=== PATIENT | female | born 1965 | race Caucasian/White ===

== ENCOUNTER 2018-04-18 13:28 | Inpatient (IN) | payer MEDICAID ==
[~2018-04-18] VITALS: Ht 172.7 cm; Wt 67.4 kg
[2018-04-18 15:35] LABS: BASOPHILS # (AUTO) 0.03 x10^3/uL (0-0.1); BASOPHILS % (AUTO) 0 % (0-1); EOSINOPHILS # (AUTO) 0.08 x10^3/uL (0-0.4); EOSINOPHILS % (AUTO) 1 % (1-7); LYMPHOCYTES # (AUTO) 3.25 x10^3/uL (1-3.4); LYMPHOCYTES % (AUTO) 25 % (22-44); MD NO; MEAN CORPUSCULAR HEMOGLOBIN 30.7 pg (27.0-34.8); MEAN CORPUSCULAR HGB CONC 33.4 g/dL (32.4-35.8); MEAN CORPUSCULAR VOLUME 91.7 fL (80-100); MEAN PLATELET VOLUME 7.6 fL (7.4-10.4); MONOCYTES # (AUTO) 0.72 x10^3/uL (0.2-0.8); MONOCYTES % (AUTO) 6 % (2-9); NEUTROPHILS # (AUTO) 8.86 x10^3/uL (1.8-6.8); NEUTROPHILS % (AUTO) 68 % (42-75); PLATELET COUNT 297 x10^3/uL (130-400); RED BLOOD COUNT 5.07 x10^6/uL (3.82-5.3); RED CELL DISTRIBUTION WIDTH 13.9 % (9.6-15.2)
[2018-04-18 15:41] LABS: ALBUMIN 3.9 g/dL (3.4-5.0); ANION GAP 10 mmol/L (5-15); CALCIUM 9.4 mg/dL (8.5-10.1); CHLORIDE 111 mmol/L (98-107)
[2018-04-18 15:44] LABS: ALANINE AMINOTRANSFERASE 18 U/L (12-78); ALKALINE PHOSPHATASE 64 U/L (45-117); BILIRUBIN,TOTAL 0.6 mg/dL (0.2-1.0); TOTAL PROTEIN 7.2 g/dL (6.4-8.2)
[2018-04-18] MEDS ORDERED: SODIUM CHLORIDE 0.9% 1,000 ML IV ONE (15:50)
[2018-04-18] MEDS ORDERED: SODIUM CHLORIDE FLUSH 10ML SYR IVF ONE (16:00)
[2018-04-18] MEDS ORDERED: SODIUM CHLORIDE 0.9% 1,000ML IVBOLUS ONE (16:00)
[2018-04-18] MEDS ORDERED: MORPHINE SULFATE 4 MG/ML, 1ML ONE ×2 (16:02→17:12)
[2018-04-18] MEDS ORDERED: ONDANSETRON 2MG/ML, 2ML ONE (16:02)
[2018-04-18] MEDS: MORPHINE SULFATE 4 MG/ML, 1ML IVPush PRN ×2 (16:30→19:42)
[2018-04-18] MEDS ORDERED: ONDANSETRON ODT 4 MG PO ONE (16:30)
[2018-04-18 16:39] LABS: MICROSCOPIC AUTO
[2018-04-18 16:41] LABS: INTERNATIONAL NORMALIZED RATIO 0.99 (0.93-1.1); PROTHROMBIN TIME 10.2 Seconds (9.6-11.5)
[2018-04-18 16:50] LABS: CULTURE INDICATED? NO
[2018-04-18] MEDS ORDERED: OMNIPAQUE 350 MG/ML, 100ML BOTTLE ONE (17:35)
[2018-04-18] MEDS ORDERED: CIPROFLOXACIN/PMX 400MG/200ML 200 ML ONE (18:15)
[2018-04-18] MEDS ORDERED: METRONIDAZOLE PMX 500MG/100ML 100 ML ONE (18:15)
[2018-04-18] MEDS ORDERED: TRAZ-137 PO (18:27)
[2018-04-18] MEDS ORDERED: BUSP15TA PO (18:27)
[2018-04-18] MEDS ORDERED: GABA300C10 PO (18:27)
[2018-04-18] MEDS ORDERED: PROP40TA PO (18:27)
[2018-04-18] MEDS ORDERED: METRONIDAZOLE PMX 500MG/100ML 100 ML IVPB ONE (18:30)
[2018-04-18] MEDS ORDERED: CIPROFLOXACIN/PMX 400MG/200ML 100 ML IVPB ONE (18:30)
[2018-04-18] MEDS ORDERED: ONDANSETRON ODT 4 MG PO PRN (19:30)
[2018-04-18] MEDS: morphine SULFATE 10 MG/ML, 1ML IVPush PRN ×2 (20:00→23:59)
[2018-04-18] MEDS: SODIUM CHLORIDE 0.9% 1,000 ML IV SCH (21:12)
[2018-04-18] MEDS: PROPRANOLOL 40 MG TABLET PO SCH (22:00)
[2018-04-18] MEDS ORDERED: TRAZODONE 100MG TABLET PO SCH (22:00)
[2018-04-18 22:31] VITALS: BP 93/58
[2018-04-18] MEDS: BUSPIRONE 10 MG TABLET PO SCH (22:32)
[2018-04-18] MEDS: GABAPENTIN 400 MG CAPSULE PO SCH (22:33)
[2018-04-19] MEDS: METRONIDAZOLE PMX 500MG/100ML 100 ML IV SCH ×4 (00:56→18:19)
[2018-04-19 02:39] VITALS: BP 93/50
[2018-04-19] MEDS: SODIUM CHLORIDE 0.9% 1,000 ML IV SCH ×3 (04:31→20:27)
[2018-04-19 05:55] LABS: BASOPHILS # (AUTO) 0.04 x10^3/uL (0-0.1); BASOPHILS % (AUTO) 1 % (0-1); EOSINOPHILS # (AUTO) 0.13 x10^3/uL (0-0.4); EOSINOPHILS % (AUTO) 2 % (1-7); LYMPHOCYTES # (AUTO) 2.52 x10^3/uL (1-3.4); LYMPHOCYTES % (AUTO) 30 % (22-44); MD NO; MEAN CORPUSCULAR HEMOGLOBIN 31.3 pg (27.0-34.8); MEAN CORPUSCULAR HGB CONC 33.8 g/dL (32.4-35.8); MEAN CORPUSCULAR VOLUME 92.7 fL (80-100); MEAN PLATELET VOLUME 7.6 fL (7.4-10.4); MONOCYTES # (AUTO) 0.66 x10^3/uL (0.2-0.8); MONOCYTES % (AUTO) 8 % (2-9); NEUTROPHILS # (AUTO) 4.97 x10^3/uL (1.8-6.8); NEUTROPHILS % (AUTO) 60 % (42-75); PLATELET COUNT 236 x10^3/uL (130-400); RED BLOOD COUNT 4.34 x10^6/uL (3.82-5.3); RED CELL DISTRIBUTION WIDTH 14.1 % (9.6-15.2)
[2018-04-19] MEDS: BUSPIRONE 10 MG TABLET PO SCH ×2 (06:32→11:15)
[2018-04-19 07:42] VITALS: BP 118/66
[2018-04-19] MEDS: PROPRANOLOL 40 MG TABLET PO SCH (08:02)
[2018-04-19] MEDS: GABAPENTIN 400 MG CAPSULE PO SCH (08:02)
[2018-04-19] MEDS: CIPROFLOXACIN/PMX 400MG/200ML 200 ML IV SCH ×2 (08:14→20:27)
[2018-04-19] MEDS ORDERED: ACETAMINOPHEN 325 MG TABLET PO PRN (09:30)
[2018-04-19] MEDS: HYDROcodone/APAP 5/325 TABLET PO PRN ×4 (10:00→22:21)
[2018-04-19 14:00] VITALS: BP 101/58
[2018-04-19] MEDS: BUSPIRONE 10 MG TABLET HOMEMEDPO SCH (14:57)
[2018-04-19 19:13] VITALS: BP 106/62
[2018-04-19] MEDS ORDERED: GABAPENTIN 300 MG CAPSULE PO SCH (21:00)
[2018-04-19] MEDS ORDERED: TRAZODONE 100MG TABLET HOMEMEDPO SCH (21:00)
[2018-04-19] MEDS ORDERED: TRAZODONE 100 MG PO SCH (21:00)
[2018-04-19] MEDS ORDERED: PROPRANOLOL 40 MG PO SCH (21:00)
[2018-04-19] MEDS: GABAPENTIN 300 MG CAPSULE PO SCH (21:28)
[2018-04-19 22:50] LABS: CLOSTRIDIUM DIFFICILE ANTIGEN NEGATIVE; CLOSTRIDIUM DIFFICILE TOXIN NEGATIVE (Negative)
[2018-04-20] MEDS: METRONIDAZOLE PMX 500MG/100ML 100 ML IV SCH ×3 (01:41→12:41)
[2018-04-20 02:01] VITALS: BP 101/60
[2018-04-20] MEDS: HYDROcodone/APAP 5/325 TABLET PO PRN ×3 (02:23→13:42)
[2018-04-20] MEDS: SODIUM CHLORIDE 0.9% 1,000 ML IV SCH ×2 (04:00→08:28)
[2018-04-20 04:42] LABS: BASOPHILS # (AUTO) 0.04 x10^3/uL (0-0.1); BASOPHILS % (AUTO) 1 % (0-1); EOSINOPHILS # (AUTO) 0.15 x10^3/uL (0-0.4); EOSINOPHILS % (AUTO) 3 % (1-7); LYMPHOCYTES # (AUTO) 2.66 x10^3/uL (1-3.4); LYMPHOCYTES % (AUTO) 44 % (22-44); MD NO; MEAN CORPUSCULAR HGB CONC 33.5 g/dL (32.4-35.8); MEAN CORPUSCULAR VOLUME 92.7 fL (80-100); MEAN PLATELET VOLUME 7.7 fL (7.4-10.4); MONOCYTES # (AUTO) 0.47 x10^3/uL (0.2-0.8); MONOCYTES % (AUTO) 8 % (2-9); NEUTROPHILS # (AUTO) 2.76 x10^3/uL (1.8-6.8); NEUTROPHILS % (AUTO) 45 % (42-75); PLATELET COUNT 234 x10^3/uL (130-400); RED BLOOD COUNT 3.97 x10^6/uL (3.82-5.3); RED CELL DISTRIBUTION WIDTH 14.1 % (9.6-15.2)
[2018-04-20] MEDS ORDERED: BUSPIRONE 10 MG PO SCH ×3 (05:30→16:00)
[2018-04-20] MEDS ORDERED: GABAPENTIN 300 MG CAPSULE HOMEMEDPO SCH (05:30)
[2018-04-20] MEDS ORDERED: PROPRANOLOL 40 MG PO SCH ×4 (05:30→11:30)
[2018-04-20] MEDS: BUSPIRONE 10 MG TABLET HOMEMEDPO SCH (05:30)
[2018-04-20] MEDS: GABAPENTIN 300 MG CAPSULE PO SCH ×2 (05:37→11:37)
[2018-04-20 08:21] VITALS: BP 123/78
[2018-04-20] MEDS: CIPROFLOXACIN/PMX 400MG/200ML 200 ML IV SCH (08:28)
[2018-04-20] MEDS ORDERED: BUSPIRONE 10 MG TABLET HOMEMEDPO SCH (11:30)
[2018-04-20] MEDS ORDERED: BUSPIRONE PO SCH (11:30)
[2018-04-20] MEDS ORDERED: GABAPENTIN 300 MG CAPSULE PO SCH (11:30)
[2018-04-20 11:40] VITALS: BP 132/85
[2018-04-20] MEDS ORDERED: METR500T PO (13:30)
[2018-04-20] MEDS ORDERED: CIPR500T3 PO (13:30)
[2018-04-20 14:09] VITALS: BP 115/67
== END 2018-04-20 15:13 | disposition home or self-care (01) | DRG 378 ==
LOC: ED 18:28 → EDIP 18:36 → 4NOR 19:34
PROVIDERS: ADMIT Hospitalist; ATTEND Family Medicine
DX: K92.2 Gastrointestinal hemorrhage, unspecified (principal); A09 Infectious gastroenteritis and colitis, unspecified; F41.9 Anxiety disorder, unspecified; K58.1 Irritable bowel syndrome with constipation; M06.9 Rheumatoid arthritis, unspecified; Z80.42 Family history of malignant neoplasm of prostate; Z83.3 Family history of diabetes mellitus; Z79.899 Other long term (current) drug therapy; Z90.49 Acquired absence of other specified parts of digestive tract; Z88.0 Allergy status to penicillin; Z88.2 Allergy status to sulfonamides
CPT/HCPCS: 36415; 74021; 74177; 80053; 81001; 83605; 84703; 85025; 85610; 85730; 87324; 89055; 93005; 96361; 96365; 99285; G0378; J0744; Q0162; Q9967; J2270; J7030

== ENCOUNTER 2018-04-25 14:38 | Emergency (ER) | payer MEDICAID ==
[~2018-04-25] VITALS: Ht 172.7 cm; Wt 65.1 kg
[~2018-04-25 14:38] MED LIST: BUSP15TA PO; CIPR500T3 PO; GABA300C10 PO; METR500T PO; PROP40TA PO; TRAZ-137 PO
[2018-04-25 15:15] LABS: BASOPHILS # (AUTO) 0.04 x10^3/uL (0-0.1); BASOPHILS % (AUTO) 1 % (0-1); EOSINOPHILS # (AUTO) 0.15 x10^3/uL (0-0.4); EOSINOPHILS % (AUTO) 2 % (1-7); LYMPHOCYTES # (AUTO) 3.02 x10^3/uL (1-3.4); LYMPHOCYTES % (AUTO) 38 % (22-44); MD NO; MEAN CORPUSCULAR HEMOGLOBIN 31.6 pg (27.0-34.8); MEAN CORPUSCULAR HGB CONC 34.2 g/dL (32.4-35.8); MEAN CORPUSCULAR VOLUME 92.2 fL (80-100); MEAN PLATELET VOLUME 7.7 fL (7.4-10.4); MONOCYTES # (AUTO) 0.67 x10^3/uL (0.2-0.8); MONOCYTES % (AUTO) 8 % (2-9); NEUTROPHILS # (AUTO) 4.17 x10^3/uL (1.8-6.8); NEUTROPHILS % (AUTO) 52 % (42-75); PLATELET COUNT 303 x10^3/uL (130-400); RED BLOOD COUNT 5.14 x10^6/uL (3.82-5.3); RED CELL DISTRIBUTION WIDTH 14.1 % (9.6-15.2)
[2018-04-25 15:19] LABS: ALBUMIN 4.1 g/dL (3.4-5.0); ANION GAP 12 mmol/L (5-15); CALCIUM 9.6 mg/dL (8.5-10.1); CHLORIDE 104 mmol/L (98-107)
[2018-04-25 15:22] LABS: ALANINE AMINOTRANSFERASE 32 U/L (12-78); ALKALINE PHOSPHATASE 66 U/L (45-117); BILIRUBIN,TOTAL 0.6 mg/dL (0.2-1.0); CREATININE 0.93 mg/dL (0.55-1.02); TOTAL PROTEIN 7.9 g/dL (6.4-8.2)
[2018-04-25] MEDS ORDERED: ONDANSETRON ODT 4 MG ONE (15:56)
[2018-04-25] MEDS ORDERED: HYDROmorphone 2 MG/ML, 1ML ONE (15:57)
[2018-04-25] MEDS ORDERED: HYDROmorphone 2 MG/ML, 1ML IM ONE (16:00)
[2018-04-25] MEDS ORDERED: ONDANSETRON ODT 4 MG PO ONE (16:00)
[2018-04-25 16:32] LABS: MICROSCOPIC INDICATED
[2018-04-25 17:14] LABS: CULTURE INDICATED? NO
[2018-04-25 19:08] VITALS: BP 124/62
== END 2018-04-25 19:11 | disposition home or self-care (01) ==
LOC: ED 16:31
DX: R10.32 Left lower quadrant pain (principal); F17.200 Nicotine dependence, unspecified, uncomplicated; M54.2 Cervicalgia; M54.5 Low back pain
CPT/HCPCS: 36415; 71045; 74176; 80053; 81001; 83690; 85025; 96372; 99285; J1170; Q0162

== ENCOUNTER 2018-09-22 17:05 | Emergency (ER) | payer MEDICAID ==
[~2018-09-22] VITALS: Ht 172.7 cm; Wt 57.0 kg
[2018-09-22 17:13] VITALS: BP 138/89
--- NOTE | 2018-09-22 17:17 | NUR ---
Pt to room with EDT.
[2018-09-22] MEDS ORDERED: KETOROLAC 30 MG/1 ML ONE (17:25)
[2018-09-22] MEDS ORDERED: METHOCARBAMOL 750 MG TABLET ONE (17:25)
--- NOTE | 2018-09-22 17:25 | NUR ---
Pt in imaging.
[2018-09-22] MEDS ORDERED: KETOROLAC 30 MG/1 ML IM ONE (17:30)
[2018-09-22] MEDS ORDERED: METHOCARBAMOL 750 MG TABLET PO ONE (17:30)
--- NOTE | 2018-09-22 17:33 | NUR ---
Pt back to room from imaging.
[2018-09-22] MEDS ORDERED: HYDROcodone/APAP 5/325 TABLET ONE (18:20)
[2018-09-22] MEDS ORDERED: HYDROcodone/APAP 5/325 TABLET PO ONE ×2 (18:30)
--- NOTE | 2018-09-22 18:33 | NUR ---
Pt medicated per MAR.
--- NOTE | 2018-09-22 19:04 | NUR ---
Patient/Caregiver given discharge instructions and they have confirmed that they understand the instructions. Patient ambulatory with steady gait.
== END 2018-09-22 19:05 | disposition home or self-care (01) ==
LOC: ED 18:35
DX: S29.012A Strain of muscle and tendon of back wall of thorax, initial encounter (principal); W51.XXXA Accidental striking against or bumped into by another person, initial encounter; Y93.89 Activity, other specified; Y92.89 Other specified places as the place of occurrence of the external cause; Y99.8 Other external cause status; F17.200 Nicotine dependence, unspecified, uncomplicated; Z90.49 Acquired absence of other specified parts of digestive tract; M06.9 Rheumatoid arthritis, unspecified
CPT/HCPCS: 72072; 96372; 99283; J1885